=== PATIENT | female | born 1995 | race Caucasian/White ===

== ENCOUNTER → 2017-03-26 | Outpatient (CLI) | payer OTHER | LOC: BHSO 09:53 | DX: F41.1 Generalized anxiety disorder (principal) ==

== ENCOUNTER → 2017-05-19 | Outpatient (CLI) | payer OTHER | LOC: BHSO 08:54 | DX: F41.1 Generalized anxiety disorder (principal) ==

== ENCOUNTER → 2017-05-28 | Outpatient (CLI) | payer OTHER | LOC: BHSO 15:57 | DX: F41.1 Generalized anxiety disorder (principal) ==